=== PATIENT | female | born 1975 | race African-American/Black ===

== ENCOUNTER 2020-07-12 06:27 | Inpatient (IN) | payer MEDICARE, MEDICAID ==
[~2020-07-12] VITALS: Ht 162.6 cm; Wt 177.6 kg
--- NOTE | 2020-07-12 06:37 | NUR ---
TASK RN: PT NICOLAS BLACK FROM [facility] FOR STATUS ASTHMATICUS. PT HAS INCREASED WORSE OF RESPIRATION AND O2 DEMAND. ON 6L NC SATTING 96% AT THIS TIME. PT IS NOTED TO BE DIAPHORETIC AT THIS TIME. REPORTS "CHEST PAIN" FROM BREATHING. PT ABLE TO SPEEAK IN 3-4 WORD SENTENCES AT THIS TIME. GROSS NEURO INTACT, ANOx4. WCTM. PT PLACED ON SPO2/BP/ECG MONITORING. satting 94% on 6L NC albuterol, mag, epi, solumedrol, zofran, tylenol [employer]
[2020-07-12] MEDS ORDERED: BUDE10.2 INH (06:44)
[2020-07-12] MEDS ORDERED: ALPR2TAB5 PO (06:44)
[2020-07-12] MEDS ORDERED: BUPR150T73 PO (06:44)
[2020-07-12] MEDS ORDERED: APIX5TAB PO (06:44)
[2020-07-12] MEDS ORDERED: METF500T17 PO (06:44)
[2020-07-12] MEDS ORDERED: ELET40TA PO (06:44)
[2020-07-12] MEDS ORDERED: DULO60CA7 PO (06:44)
[2020-07-12] MEDS ORDERED: HUM100VI6 SQ (06:44)
[2020-07-12] MEDS ORDERED: OMEP-110 PO (06:44)
[2020-07-12] MEDS ORDERED: ARIP400S3 IM (06:44)
[2020-07-12] MEDS ORDERED: DICY10CA3 PO (06:44)
[2020-07-12] MEDS ORDERED: SITA100T PO (06:44)
[2020-07-12] MEDS ORDERED: FLUO40CA2 PO (06:44)
[2020-07-12] MEDS ORDERED: FLUT12AE INH (06:44)
[2020-07-12] MEDS ORDERED: FURO20TA3 PO (06:44)
[2020-07-12] MEDS ORDERED: SODIUM CHLORIDE FLUSH 10ML SYR IVF ONE (07:00)
[2020-07-12] MEDS ORDERED: SODIUM CHLORIDE FLUSH 10ML SYR IVF PRN (07:00)
--- NOTE | 2020-07-12 07:00 | NUR ---
REPORT FROM LUIS ALFREDO, ASSUME CARE OF PT AT THIS TIME. PUREWICK REMOVED. PT ASSISTED IN REPOSITIONING IN BED. CALL LIGHT WITHIN REACH. AWAITING ADMIT BED.
[2020-07-12] MEDS ORDERED: methylPREDNISolone SOD SUCC 125 MG/2 ML IVPush SCH (11:30)
[2020-07-12] MEDS ORDERED: hydrALAzine 20 MG/ML, 1ML IVPush PRN (11:30)
[2020-07-12] MEDS ORDERED: TEMPLATE NON-FORMULARY MED. (Budesonide/Formoterol Fumarate (Symbicort 160-4.5 Mcg Inhaler INH SCH (11:30)
[2020-07-12] MEDS ORDERED: ARIPIPRAZOLE 400 MG INJ NC IM SCH (11:30)
[2020-07-12 11:39] VITALS: BP 120/81
[2020-07-12] MEDS ORDERED: HYDR-3241 PO (12:15)
[2020-07-12 12:29] LABS: ANION GAP 11 mmol/L (5-15); CALCIUM 8.9 mg/dL (8.5-10.1); CHLORIDE 107 mmol/L (98-107); CREATININE 1.43 mg/dL (0.55-1.02)
[2020-07-12 12:53] LABS: PLATELET COUNT 377 x10^3/uL (130-400); RED BLOOD COUNT 5.03 x10^6/uL (3.82-5.3); RED CELL DISTRIBUTION WIDTH 17.3 % (9.6-15.2)
[2020-07-12 12:54] LABS: MEAN PLATELET VOLUME 7.5 fL (7.4-10.4)
[2020-07-12] MEDS: ALPRazolam 1MG TAB PO PRN ×2 (13:10→21:18)
[2020-07-12 13:12] LABS: MD YES
[2020-07-12 13:13] LABS: BANDS%(MANUAL) 6 % (0-7); LYMPH#(MANUAL) 1.05 x10^3/uL (1-3.4); LYMPHS% (MANUAL) 9 % (22-44); METAMYELOCYTES# (MANUAL) 0.12 x10^3/uL (0-0); METAMYELOCYTES% (MANUAL) 1 % (0-1); MONOS#(MANUAL) 0.12 x10^3/uL (0.3-2.7); MONOS% (MANUAL) 1 % (2-9); MYELOCYTES# (MANUAL) 0.12 x10^3/uL (0-0); MYELOCYTES% (MANUAL) 1 % (0-0); SEG#(MANUAL) 9.59 x10^3/uL (1.8-6.8); SEGS% (MANUAL) 82 % (42-75)
[2020-07-12 13:14] LABS: <PLATELET ESTIMATE> ADEQUATE; <PLT MORPHOLOGY> NORMAL PLT MORPH; ANISOCYTOSIS 1+; MICROCYTOSIS 1+
[2020-07-12 13:15] LABS: HYPOCHROMIA 1+; POLYCHROMASIA 1+
[2020-07-12] MEDS: ALBUTEROL HFA 90 MCG/SPRAY INH SCH ×3 (14:00→22:00)
[2020-07-12 14:59] VITALS: BP 133/78
[2020-07-12] MEDS: ELETRIPTAN 40MG TABLET PO PRN (15:39)
[2020-07-12] MEDS: DICYCLOMINE 10 MG CAPSULE PO SCH ×2 (15:39→20:31)
[2020-07-12] MEDS ORDERED: MAGNESIUM SULFATE PMX 2GM/50ML 50 ML IV ONE (16:00)
[2020-07-12] MEDS: INSULIN LISPRO 100 UNITS/ML, PEN SQ-INSULIN SCH ×2 (17:12→20:32)
[2020-07-12] MEDS: methylPREDNISolone SOD SUCC 125 MG/2 ML IVPush SCH ×2 (17:12→23:14)
[2020-07-12] MEDS: ONDANSETRON 2MG/ML, 2ML IVPush PRN (17:37)
[2020-07-12] MEDS: ACETAMINOPHEN 325 MG TABLET PO PRN (17:37)
[2020-07-12 19:41] VITALS: BP 134/85
[2020-07-12] MEDS: BUPROPION SR 150 MG TABLET PO SCH (20:31)
[2020-07-12] MEDS: metFORMIN 500 MG TABLET PO SCH (20:31)
[2020-07-12] MEDS: APIXABAN 5 MG TABLET PO SCH (20:31)
[2020-07-12] MEDS: FLUTICASONE NASAL SPRAY 16GM NAS SCH (21:18)
[2020-07-12] MEDS: INSULIN HUMULIN 70/30, 3ML PEN SQ-INSULIN SCH (21:19)
[2020-07-13 01:18] VITALS: BP 125/77
[2020-07-13] MEDS: ONDANSETRON 2MG/ML, 2ML IVPush PRN (05:17)
[2020-07-13] MEDS: methylPREDNISolone SOD SUCC 125 MG/2 ML IVPush SCH ×4 (05:17→23:07)
[2020-07-13] MEDS: DICYCLOMINE 10 MG CAPSULE PO SCH ×4 (05:18→20:23)
[2020-07-13 06:36] VITALS: BP 134/75
[2020-07-13] MEDS: ALPRazolam 1MG TAB PO PRN ×2 (07:05→16:27)
[2020-07-13] MEDS: ALBUTEROL HFA 90 MCG/SPRAY INH SCH (07:14)
[2020-07-13] MEDS: DULOXETINE 30 MG CAPSULE.DR PO SCH (07:52)
[2020-07-13] MEDS: LINAGLIPTIN 5 MG TAB PO SCH (07:52)
[2020-07-13] MEDS: FUROSEMIDE 20 MG TABLET PO SCH (07:52)
[2020-07-13] MEDS: BUPROPION SR 150 MG TABLET PO SCH ×2 (07:52→20:22)
[2020-07-13] MEDS: SENNA/DOCUSATE TABLET PO SCH (07:52)
[2020-07-13] MEDS: FLUOXETINE HCL 20 MG CAPSULE PO SCH (07:52)
[2020-07-13] MEDS: INSULIN HUMULIN 70/30, 3ML PEN SQ-INSULIN SCH ×2 (07:52→20:24)
[2020-07-13] MEDS: metFORMIN 500 MG TABLET PO SCH ×2 (07:52→20:23)
[2020-07-13] MEDS: OMEPRAZOLE 20 MG CAPSULE.DR PO SCH (07:52)
[2020-07-13] MEDS: APIXABAN 5 MG TABLET PO SCH ×2 (07:52→20:23)
[2020-07-13] MEDS: INSULIN LISPRO 100 UNITS/ML, PEN SQ-INSULIN SCH ×5 (07:53→20:24)
[2020-07-13] MEDS: FLUTICASONE NASAL SPRAY 16GM NAS SCH ×2 (07:53→20:22)
[2020-07-13] MEDS: FLUTICASONE/VILANTEROL 200-25MCG/INH INH SCH (08:20)
[2020-07-13] MEDS ORDERED: ARIPIPRAZOLE 400 MG INJ NC IM SCH (09:00)
[2020-07-13] MEDS: ALBUTEROL-IPRATROPIUM MDI INH INH SCH ×3 (09:00→19:55)
[2020-07-13] MEDS: K-PHOS NEUTRAL 250MG TAB PO SCH ×2 (09:03→20:22)
[2020-07-13] MEDS: ACETAMINOPHEN 325 MG TABLET PO PRN (09:03)
[2020-07-13 09:10] VITALS: BP 112/75
[2020-07-13] MEDS: GUAIFENESIN 200 MG TABLET PO SCH ×3 (10:07→20:23)
[2020-07-13] MEDS: ELETRIPTAN 40MG TABLET PO PRN (10:09)
[2020-07-13] MEDS ORDERED: ALBUTEROL HFA 90 MCG/SPRAY INH PRN (11:30)
[2020-07-13 12:24] VITALS: BP 106/62
[2020-07-13 14:54] LABS: % IRON SATURATION 6 % (20-55); IRON LEVEL 26 mcg/dL (50-170); TOTAL IRON BINDING CAPACITY 403 mcg/dL (250-450)
[2020-07-13 14:58] LABS: TROPONIN I < 0.015 ng/mL (0.000-0.045)
[2020-07-13] MEDS: AMOXICILLIN/CLAV 875-125MG TABLET PO SCH ×2 (15:39→20:22)
[2020-07-13] MEDS: DOXYCYCLINE 100MG TABLET PO SCH ×2 (15:39→20:23)
[2020-07-13 19:23] LABS: TROPONIN I < 0.015 ng/mL (0.000-0.045)
[2020-07-13 19:51] VITALS: BP 154/80
[2020-07-13] MEDS ORDERED: DOXYCYCLINE 100MG TABLET PO SCH (21:00)
[2020-07-13] MEDS ORDERED: AMOXICILLIN/CLAV 875-125MG TABLET PO SCH (21:00)
[2020-07-14 00:47] VITALS: BP 104/70
[2020-07-14] MEDS: ALBUTEROL-IPRATROPIUM MDI INH INH SCH ×4 (04:40→19:43)
[2020-07-14] MEDS: GUAIFENESIN 200 MG TABLET PO SCH ×4 (05:41→21:02)
[2020-07-14] MEDS: DICYCLOMINE 10 MG CAPSULE PO SCH ×4 (05:41→21:02)
[2020-07-14] MEDS: methylPREDNISolone SOD SUCC 125 MG/2 ML IVPush SCH ×4 (05:41→23:16)
[2020-07-14 05:44] LABS: BASOPHILS % (AUTO) 0 % (0-1); EOSINOPHILS % (AUTO) 0 % (1-7); LYMPHOCYTES % (AUTO) 7 % (22-44); MEAN CORPUSCULAR HEMOGLOBIN 23.9 pg (27.0-34.8); MEAN CORPUSCULAR HGB CONC 30.3 g/dL (32.4-35.8); MEAN PLATELET VOLUME 7.8 fL (7.4-10.4); MONOCYTES % (AUTO) 4 % (2-9); NEUTROPHILS % (AUTO) 89 % (42-75); PLATELET COUNT 412 x10^3/uL (130-400); RED BLOOD COUNT 4.85 x10^6/uL (3.82-5.3); RED CELL DISTRIBUTION WIDTH 17.5 % (9.6-15.2)
[2020-07-14 05:52] LABS: CHLORIDE 105 mmol/L (98-107); MD NO
[2020-07-14 05:59] LABS: ALANINE AMINOTRANSFERASE 21 U/L (12-78); ALBUMIN 2.9 g/dL (3.4-5.0); ALKALINE PHOSPHATASE 78 U/L (45-117); ANION GAP 6 mmol/L (5-15); BILIRUBIN,TOTAL 0.2 mg/dL (0.2-1.0); CALCIUM 9.2 mg/dL (8.5-10.1); CREATININE 1.17 mg/dL (0.55-1.02); TOTAL PROTEIN 7.3 g/dL (6.4-8.2)
[2020-07-14] MEDS: ALPRazolam 1MG TAB PO PRN ×2 (07:24→16:32)
[2020-07-14] MEDS: ACETAMINOPHEN 325 MG TABLET PO PRN (07:24)
[2020-07-14 07:52] VITALS: BP 125/73
[2020-07-14] MEDS: INSULIN LISPRO 100 UNITS/ML, PEN SQ-INSULIN SCH ×4 (08:02→19:47)
[2020-07-14] MEDS: INSULIN HUMULIN 70/30, 3ML PEN SQ-INSULIN SCH ×2 (08:03→19:46)
[2020-07-14] MEDS: FLUTICASONE NASAL SPRAY 16GM NAS SCH ×2 (08:03→21:02)
[2020-07-14] MEDS: OMEPRAZOLE 20 MG CAPSULE.DR PO SCH (08:04)
[2020-07-14] MEDS: SENNA/DOCUSATE TABLET PO SCH (08:04)
[2020-07-14] MEDS: AMOXICILLIN/CLAV 875-125MG TABLET PO SCH ×2 (08:04→21:02)
[2020-07-14] MEDS: FUROSEMIDE 20 MG TABLET PO SCH (08:04)
[2020-07-14] MEDS: DOXYCYCLINE 100MG TABLET PO SCH ×2 (08:04→21:02)
[2020-07-14] MEDS: FLUOXETINE HCL 20 MG CAPSULE PO SCH (08:04)
[2020-07-14] MEDS: BUPROPION SR 150 MG TABLET PO SCH ×2 (08:04→21:02)
[2020-07-14] MEDS: LINAGLIPTIN 5 MG TAB PO SCH (08:04)
[2020-07-14] MEDS: metFORMIN 500 MG TABLET PO SCH ×2 (08:04→21:02)
[2020-07-14] MEDS: APIXABAN 5 MG TABLET PO SCH ×2 (08:04→21:02)
[2020-07-14] MEDS: K-PHOS NEUTRAL 250MG TAB PO SCH ×2 (08:04→21:02)
[2020-07-14] MEDS: DULOXETINE 30 MG CAPSULE.DR PO SCH (08:05)
[2020-07-14] MEDS: ELETRIPTAN 40MG TABLET PO PRN (08:05)
[2020-07-14] MEDS: FLUTICASONE/VILANTEROL 200-25MCG/INH INH SCH (08:28)
[2020-07-14] MEDS: ONDANSETRON 2MG/ML, 2ML IVPush PRN ×2 (09:58→16:32)
[2020-07-14 12:41] VITALS: BP 141/84
[2020-07-14] MEDS: BUTALB/APAP/CAFFEINE 50MG/325MG/40MG PO PRN ×2 (13:57→21:24)
[2020-07-14] MEDS: FERROUS SULFATE 325 MG TABLET PO SCH (16:32)
[2020-07-14 20:14] VITALS: BP 147/89
[2020-07-14] MEDS ORDERED: INSULIN GLARGINE 100 UNITS/ML, PEN SQ-INSULIN SCH (21:00)
[2020-07-15 01:27] VITALS: BP 148/93
[2020-07-15] MEDS: ALBUTEROL-IPRATROPIUM MDI INH INH SCH ×2 (03:00→09:00)
[2020-07-15] MEDS: ALPRazolam 1MG TAB PO PRN (04:30)
[2020-07-15] MEDS: BUTALB/APAP/CAFFEINE 50MG/325MG/40MG PO PRN (04:30)
[2020-07-15] MEDS: GUAIFENESIN 200 MG TABLET PO SCH ×2 (05:16→11:13)
[2020-07-15] MEDS: DICYCLOMINE 10 MG CAPSULE PO SCH ×2 (05:16→11:13)
[2020-07-15] MEDS: methylPREDNISolone SOD SUCC 125 MG/2 ML IVPush SCH (05:17)
[2020-07-15 05:54] LABS: MEAN CORPUSCULAR HEMOGLOBIN 23.9 pg (27.0-34.8); MEAN CORPUSCULAR HGB CONC 30.4 g/dL (32.4-35.8); MEAN PLATELET VOLUME 7.5 fL (7.4-10.4); PLATELET COUNT 383 x10^3/uL (130-400); RED BLOOD COUNT 4.75 x10^6/uL (3.82-5.3); RED CELL DISTRIBUTION WIDTH 17.4 % (9.6-15.2)
[2020-07-15 06:08] LABS: ALBUMIN 2.8 g/dL (3.4-5.0); ANION GAP 8 mmol/L (5-15); CALCIUM 9.1 mg/dL (8.5-10.1); CHLORIDE 102 mmol/L (98-107)
[2020-07-15 06:13] LABS: ALANINE AMINOTRANSFERASE 18 U/L (12-78); ALKALINE PHOSPHATASE 71 U/L (45-117); BILIRUBIN,TOTAL 0.2 mg/dL (0.2-1.0); CREATININE 1.21 mg/dL (0.55-1.02)
[2020-07-15 06:32] VITALS: BP 148/97
[2020-07-15 06:49] LABS: MD YES
[2020-07-15 06:50] LABS: BAND#(MANUAL) 0.19 x10^3/uL; BANDS%(MANUAL) 1 % (0-7); LYMPH#(MANUAL) 2.41 x10^3/uL (1-3.4); LYMPHS% (MANUAL) 13 % (22-44); METAMYELOCYTES# (MANUAL) 0.37 x10^3/uL (0-0); METAMYELOCYTES% (MANUAL) 2 % (0-1); MONOS#(MANUAL) 0.74 x10^3/uL (0.3-2.7); MONOS% (MANUAL) 4 % (2-9); MYELOCYTES# (MANUAL) 0.19 x10^3/uL (0-0); MYELOCYTES% (MANUAL) 1 % (0-0); SEG#(MANUAL) 14.62 x10^3/uL (1.8-6.8); SEGS% (MANUAL) 79 % (42-75)
[2020-07-15 06:51] LABS: ANISOCYTOSIS 1+; HYPOCHROMIA 1+; MICROCYTOSIS 1+
[2020-07-15 06:52] LABS: <PLATELET ESTIMATE> ADEQUATE; <PLT MORPHOLOGY> NORMAL PLT MORPH
[2020-07-15] MEDS: INSULIN LISPRO 100 UNITS/ML, PEN SQ-INSULIN SCH ×2 (08:10→11:21)
[2020-07-15] MEDS: FERROUS SULFATE 325 MG TABLET PO SCH (08:11)
[2020-07-15] MEDS: FLUTICASONE NASAL SPRAY 16GM NAS SCH (08:11)
[2020-07-15] MEDS: INSULIN HUMULIN 70/30, 3ML PEN SQ-INSULIN SCH (08:11)
[2020-07-15] MEDS: LINAGLIPTIN 5 MG TAB PO SCH (08:11)
[2020-07-15] MEDS: FUROSEMIDE 20 MG TABLET PO SCH (08:12)
[2020-07-15] MEDS: OMEPRAZOLE 20 MG CAPSULE.DR PO SCH (08:12)
[2020-07-15] MEDS: DOXYCYCLINE 100MG TABLET PO SCH (08:12)
[2020-07-15] MEDS: metFORMIN 500 MG TABLET PO SCH (08:12)
[2020-07-15] MEDS: BUPROPION SR 150 MG TABLET PO SCH (08:12)
[2020-07-15] MEDS: APIXABAN 5 MG TABLET PO SCH (08:12)
[2020-07-15] MEDS: AMOXICILLIN/CLAV 875-125MG TABLET PO SCH (08:12)
[2020-07-15] MEDS: SENNA/DOCUSATE TABLET PO SCH (08:12)
[2020-07-15] MEDS: DULOXETINE 30 MG CAPSULE.DR PO SCH (08:13)
[2020-07-15] MEDS: FLUOXETINE HCL 20 MG CAPSULE PO SCH (08:13)
[2020-07-15] MEDS ORDERED: predniSONE 50MG TABLET PO SCH (08:30)
[2020-07-15] MEDS ORDERED: INSULIN HUMULIN 70/30, 3ML PEN SQ-INSULIN SCH (09:00)
[2020-07-15] MEDS: FLUTICASONE/VILANTEROL 200-25MCG/INH INH SCH (09:00)
[2020-07-15] MEDS: K-PHOS NEUTRAL 250MG TAB PO SCH (09:00)
[2020-07-15] MEDS: ONDANSETRON 2MG/ML, 2ML IVPush PRN (10:00)
[2020-07-15] MEDS ORDERED: GUAI200T37 PO (10:45)
[2020-07-15] MEDS ORDERED: FERR-51 PO (10:45)
[2020-07-15] MEDS ORDERED: AMOX1TAB12 PO (10:45)
[2020-07-15] MEDS ORDERED: DOXY100T PO (10:45)
[2020-07-15] MEDS ORDERED: PRED50TA PO (10:45)
[2020-07-15] MEDS ORDERED: PHOS250T PO (10:45)
[2020-07-15] MEDS ORDERED: Albuterol-Ipratropium Mdi INH (10:45)
== END 2020-07-15 13:25 | disposition home or self-care (01) | DRG 202 ==
LOC: ED 07:32 → EDIP 07:51 → 3N 08:37 → DCLOUNGE 07-15 13:15
PROVIDERS: ADMIT Hospitalist; ATTEND Internal Medicine
PROC: 5A09357 Assistance with Respiratory Ventilation, Less than 24 Consecutive Hours, Continuous Positive Airway Pressure (ICD-10-PCS; 2020-07-13)
PROC: 5A09357 Assistance with Respiratory Ventilation, Less than 24 Consecutive Hours, Continuous Positive Airway Pressure (ICD-10-PCS; 2020-07-14)
PROC: 5A09357 Assistance with Respiratory Ventilation, Less than 24 Consecutive Hours, Continuous Positive Airway Pressure (ICD-10-PCS; principal; 2020-07-15)
DX: J45.41 Moderate persistent asthma with (acute) exacerbation (principal); N17.0 Acute kidney failure with tubular necrosis; D68.69 Other thrombophilia; J96.11 Chronic respiratory failure with hypoxia; D50.9 Iron deficiency anemia, unspecified; E11.9 Type 2 diabetes mellitus without complications; E66.01 Morbid (severe) obesity due to excess calories; F32.9 Major depressive disorder, single episode, unspecified; G43.909 Migraine, unspecified, not intractable, without status migrainosus; I10 Essential (primary) hypertension; J20.9 Acute bronchitis, unspecified; T38.0X5A Adverse effect of glucocorticoids and synthetic analogues, initial encounter; Z20.828 Contact with and (suspected) exposure to other viral communicable diseases; Y92.89 Other specified places as the place of occurrence of the external cause; Z79.01 Long term (current) use of anticoagulants; Z86.711 Personal history of pulmonary embolism
CPT/HCPCS: 36415; 71045; 80048; 80053; 82728; 82962; 83036; 83540; 83550; 83690; 83735; 84100; 84484; 85025; 93005; 94640; 94660; 99285; G0378; J2405; J1815; J2930; J3475; J7512